=== PATIENT | female | born 1980 | race Caucasian/White ===

== ENCOUNTER → 2017-02-23 | Outpatient (CLI) | payer OTHER ==
[~2017-02-23] MED LIST: CEPHALEXIN500 M1 PO
== END ==
LOC: COL.RAD 10:15
DX: R10.11 Right upper quadrant pain (principal)

== ENCOUNTER → 2017-03-02 | Outpatient (CLI) | payer OTHER | LOC: COL.RAD 11:19 | DX: R10.11 Right upper quadrant pain (principal) | CPT/HCPCS: A9537 ==

== ENCOUNTER → 2017-06-23 | Outpatient (REF) | LOC: WSOH 15:45 | DX: Z02.89 Encounter for other administrative examinations (principal) ==

== ENCOUNTER → 2018-12-08 | Outpatient (CLI) | payer OTHER | LOC: MC.RAD 12:39 | DX: N63.22 Unspecified lump in the left breast, upper inner quadrant (principal) ==

== ENCOUNTER → 2019-05-25 | Outpatient (CLI) | payer OTHER | LOC: MC.RAD 08:11 | DX: N60.01 Solitary cyst of right breast (principal); N63.13 Unspecified lump in the right breast, lower outer quadrant ==

== ENCOUNTER → 2020-05-23 | Outpatient (CLI) | payer OTHER | LOC: MC.RAD 07:45 | DX: Z12.31 Encounter for screening mammogram for malignant neoplasm of breast (principal) ==

== ENCOUNTER → 2021-06-05 | Outpatient (CLI) | payer OTHER | LOC: MC.RAD 07:28 | DX: Z12.31 Encounter for screening mammogram for malignant neoplasm of breast (principal) ==